=== PATIENT | male | born 1960 | race Caucasian/White ===

== ENCOUNTER 2025-03-01 10:24 | Outpatient (CLI) | payer OTHER ==
--- NOTE | 2025-03-01 12:51 | RADIOLOGY REPORT ---
Procedure: CT CT CHEST LOW DOSE Reason for study/Clinical History: HISTORY OF NICOTINE DEPENDENCY COMPARISON: None TECHNIQUE: Multidetector CT of the chest was performed from the lung apices to the upper abdomen without the use of intravenous contract. Axial, coronal and sagittal multiplanar reformats were performed. Radiation Dose Information: CT Dose: CTDI volume is 2.8 mGy. Dose-length product is 93.5 mGy*cm The dose indicators for CT are the volume Computed Tomography (CT) Dose Index (CTDIvol) and the Dose Length Product (DLP), and are measured in units of mGy and mGy-cm, respectively. These indicators are not patient dose, but values generated from the CT scanner acquisition factors. The report includes radiation exposure data for exposures received during this examination. FINDINGS: Lower neck: Normal thyroid. Lungs: No focal consolidation. 0.6 cm nodule in the right middle lobe, image 134. Heart/Vascular Structures: Normal heart size. No pericardial effusion. Lymph Nodes: No adenopathy Pleura: No pleural effusion or significant pneumothorax. Musculoskeletal: No acute osseous abnormality. Degenerative changes of the spine. Soft tissues: Normal. Upper abdomen: Limited portions of the upper abdomen are unremarkable. IMPRESSION: 0.6 cm nodule in the right middle lobe. No acute cardiopulmonary disease. Lung-RADS category: Benign appearance or behavior. Continue annual screening with low dose CT in 12 months. LUNG RADS Category 2: Continue annual screening with LDCT
== END 2025-03-01 22:59 | disposition home or self-care (01) ==
LOC: RAD 10:24 → EEVIPCON 11:00 → RAD 22:59
PROVIDERS: ATTEND Nurse Practitioner
DX: Z12.2 Encounter for screening for malignant neoplasm of respiratory organs (principal); R91.1 Solitary pulmonary nodule; M47.814 Spondylosis without myelopathy or radiculopathy, thoracic region; Z87.891 Personal history of nicotine dependence
CPT/HCPCS: 71271